=== PATIENT | female | born 1980 | race Caucasian/White ===

== ENCOUNTER 2020-12-07 07:45 | Day surgery (SDC) | payer BC ==
[~2020-12-07] VITALS: Ht 177.8 cm; Wt 94.3 kg
[~2020-12-07 07:45] MED LIST: CELEXA40 MG PO; FERROUS SULFAT325 MG PO; HYDROCODON-ACE1 EA10 PO; IMITREX50 MG PO; KLONOPIN1 MG PO; LYRICA150 MG PO; MACRODANTIN100 MG PO; MAGNESIUM OXID250 MG PO; MEDROL DOSE PACK4 MG PO; MYRBETRIQ25 MG PO; PROTONIX20 MG PO; SINGULAIR10 MG PO; SUPER B COMPLE1 EAC1 PO; TRELEGY ELLIPT1 EACH INH; VITAMIN B-121000 MCG PO; VITAMIN D325 MC1 PO; ZOCOR40 MG PO
[2020-12-07 08:20] LABS: CALC OSMOLALITY 277 mosm/kg (275-300); CALCIUM 8.9 mg/dL (8.5-10.1); CARBON DIOXIDE 25.8 mmol/L (21.0-32.0); CHLORIDE - SERUM 107 mmol/L (98-107); CREATININE - SERUM 0.7 mg/dL (0.6-1.3); GLUCOSE 120 mg/dL (74-106); POTASSIUM - SERUM 3.8 mmol/L (3.5-5.1); SODIUM 140 mmol/L (136-145); UREA NITROGEN 8 mg/dL (7-18); eGFR NON AFRICAN AMERICAN > 90 mL/min (90-120)
[2020-12-07 08:32] LABS: BASOPHILS 1.1 % (0-2); EOSINOPHILS 0.8 % (0-7); HEMATOCRIT 43.2 % (36.0-48.0); HEMOGLOBIN 14.8 g/dL (12-16); LYMPHOCYTES 29.7 % (15-50); MCH 32.4 pg (26.0-34.0); MCHC 34.2 g/dL (31.0-37.0); MCV 94.9 fL (80.0-100.0); MEAN PLATELET VOLUME 10.3 fL (7.4-10.4); MONOCYTES 6.8 % (2-11); NEUTROPHILS 61.6 % (40-80); PLATELET COUNT 205 10x3/uL (130-400); RBC 4.55 10x6/uL (4.00-5.40); RDW 12.5 % (11.5-14.5); WBC 8.5 10x3/uL (4.8-10.8)
[2020-12-07 08:33] LABS: SARS-CoV-2 ANTIGEN NEGATIVE- SARS-COV-2 (NEGATIVE)
[2020-12-07 09:52] VITALS: Ht 177.8 cm; Wt 94.3 kg
[2020-12-07] MEDS ORDERED: MEDROL DOSE PACK4 MG PO (14:35)
[2020-12-07] MEDS ORDERED: HYDROCODON-ACE1 EA10 PO (14:35)
--- NOTE | 2020-12-07 18:54 | NUR ---
1630 ASSISTED TO BATHROOM. WARM WATER OVER ILYA AREA. PT HAVING A LITTLE DIFFICULTY URINATING. VOIDED X1. 1635 IV REMOVED AND INSTRUCTIONS GIVEN,
--- NOTE | 2020-12-20 07:36 | OP ---
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 PROCEDURE: Lumbar laminectomy, medial facetectomy and foraminotomy at the L4-L5 on the left with discectomy at L4-L5 with METRx retractor. SURGEON: Cally Wilkes MD DESCRIPTION OF PROCEDURE: After induction of general endotracheal anesthesia, the patient was rolled prone on the Ajit frame. Lumbar spine was prepped and draped in the usual sterile fashion. Fluoroscopic x-ray and a spinal needle localized the L4-L5 interspace on the left side. After infiltration of 1:100,000 epinephrine with 1% lidocaine, a stab incision was created with a #11 blade. A series of dilators was used to advance a METRx met Rx retractor to the L4-L5 interspace on the left side. A microscope and Midas Elio were used to perform a laminectomy, medial facetectomy, and foraminotomy at L4-L5 on the left. Hypertrophied ligamentum flavum was removed with Cloward rongeurs. Next, there was an obvious disk protrusion compressing the left L5 nerve root. This was removed in a piecemeal fashion with pituitary rongeurs and curettes. Following this, the L5 nerve root was decompressed as well. Meticulous hemostasis was maintained throughout the wound. The wound was irrigated with copious amounts of Ancef irrigant solution. Retractor was removed. The fascia was closed with 2-0 Vicryl suture. The subdermal layer was closed with 3-0 Vicryl suture. The skin was reapproximated with Steri-Strips and benzoin. A sterile dressing was applied to the wound. The patient was awakened in good condition and taken to recovery. All counts were reported as correct. ESTIMATED BLOOD LOSS: Minimal. TRANSINT:[id number] Voice Confirmation ID: [id number] DOCUMENT ID: [id number] CALLY WILKES MD at 0736 CC: [id number] DICTATION DATE: 12/19/20 2213 PROJECT LEADER: 12/20/20 0246 [facility] 12/07/20 [id number] [place] [address]
== END 2020-12-07 16:45 | disposition home or self-care (01) ==
LOC: D.OPS 07:45
PROVIDERS: Anesthesiology; ATTEND Neurological Surgery
DX: M51.26 Other intervertebral disc displacement, lumbar region (principal); M54.16 Radiculopathy, lumbar region; M48.061 Spinal stenosis, lumbar region without neurogenic claudication; E78.5 Hyperlipidemia, unspecified; K21.9 Gastro-esophageal reflux disease without esophagitis; Z20.822 Contact with and (suspected) exposure to COVID-19